=== PATIENT | female | born 1965 ===

== ENCOUNTER 2017-01-22 09:35 | Day surgery (SDC) | payer SELFPAY ==
[2017-01-22] MEDS ORDERED: Lactated Ringer's 1,000 ML IV ONE (10:50)
[2017-01-22] MEDS ORDERED: Propofol 10 mg/ml Inj (20 ML) ONE (12:16)
[2017-01-22] MEDS ORDERED: Lidocaine 2% MPF (5 ml) Inj ONE (12:17)
[2017-01-22 13:04] VITALS: BP 107/59; PULSE 69; RESP 14; TEMP 97.5; O2SAT 100
== END 2017-01-22 13:05 | disposition home or self-care (01) ==
LOC: H.ENDO 09:35
PROVIDERS: ATTEND Internal Medicine Gastroenterology
DX: Z12.11 Encounter for screening for malignant neoplasm of colon (principal); K64.8 Other hemorrhoids
CPT/HCPCS: 45378; J2704; J7120

== ENCOUNTER 2017-04-25 23:31 | Emergency (ER) | payer SELFPAY ==
[2017-04-26] MEDS ORDERED: Sodium Chloride 0.9% 1,000 ML IV STA ×2 (00:07→00:08)
[2017-04-26] MEDS ORDERED: Lactated Ringer's 1,000 ML IV SCH (00:30)
[2017-04-26 00:36] LABS: BASO % 0.5 % (0.0-2.0); EOS % 0.8 % (0.0-4.0); HEMOGLOBIN 11.7 g/dL (12.0-16.0); LYMPH # 1.1 K/uL (1.0-4.3); LYMPH % 22.5 % (20.0-40.0); MEAN CELL VOLUME 87.2 fl (81.0-99.0); MEAN CORPUSCULAR HEMOGLOBIN 29.1 pg (27.0-31.0); MEAN CORPUSCULAR HGB CONC 33.4 g/dL (33.0-37.0); MEAN PLATELET VOLUME 8.4 fl (7.2-11.7); MONO # 0.4 K/uL (0.0-0.8); MONO % 8.6 % (0.0-10.0); NEUT # 3.3 K/uL (1.8-7.0); NEUT % 67.6 % (50.0-75.0); NRBC % 0.1 % (0.0-0.0); RBC 4.02 Mil/uL (3.80-5.20); RED CELL DISTRIBUTION WIDTH 13.2 % (11.5-14.5)
[2017-04-26 00:58] LABS: URINE BILIRUBIN NEGATIVE (NEGATIVE); URINE BLOOD NEGATIVE (NEGATIVE); URINE CLARITY CLOUDY (Clear); URINE COLOR YELLOW (YELLOW); URINE GLUCOSE (UA) NEG (Normal); URINE LEUKOCYTE ESTERASE NEG Leu/uL (Negative); URINE NITRATE NEGATIVE (NEGATIVE); URINE PROTEIN NEGATIVE (NEGATIVE); URINE UROBILINOGEN 0.2-1.0 mg/dL (0.2-1.0)
[2017-04-26 01:02] LABS: BLOOD UREA NITROGEN 12 mg/dl (7-17); CALCIUM 8.7 mg/dL (8.4-10.2); GFR AFRICAN-AMERICAN > 60; GFR NON-AFRICAN AMERICAN > 60
--- NOTE | 2017-04-26 01:28 | ED PDOC ---
HPI: General Adult Time Seen by Provider: 04/26/17 00:01 Chief Complaint (Nursing): Flu-like Symptoms Chief Complaint (Provider): Flu Like Symptoms History Per: Patient Onset/Duration Of Symptoms: Days (2) Current Symptoms Are (Timing): Still Present Severity: Moderate Additional History Per: Patient Additional Complaint(s): 51 y/o female complaining of two days of body aches, headache, malaise , hills, weakness, poor appetite, and nausea. She denies any vomiting, diarrhea , or cough. Patient recently returned from [facility] and reports that she did take Amoxicillin that she had on hand. Denies any other complaint at this time. Past Medical History Vital Signs: Last Vital Signs Temp 98.7 F 04/26/17 03:48 Pulse 65 04/26/17 03:48 Resp 16 04/26/17 03:48 BP 100/70 04/26/17 03:48 Pulse Ox 100 04/26/17 03:48 - Medical History PMH: Asthma - Surgical History Surgical History: No Surg Hx - Family History Family History: States: Unknown Family Hx - Social History Current smoker - smoking cessation education provided: No Ex-Smoker (has not smoked in the last 12 months): No Alcohol: None Drugs: Denies - Home Medications Home Medications: Ambulatory Orders Medication Instructions Recorded Oseltamivir [Tamiflu] 75 mg PO BID #10 cap 04/26/17 - Allergies Allergies/Adverse Reactions: Allergies Allergy/AdvReac Type Severity Reaction Status Date / Time No Known Allergies Allergy Verified 04/25/17 23:48 Review of Systems ROS Statement: Except As Marked, All Systems Reviewed And Found Negative Constitutional: Positive for: Fever, Chills, Weakness, Malaise Gastrointestinal: Positive for: Nausea Musculoskeletal: Positive for: Other (general body aches) Neurological: Positive for: Weakness Physical Exam - Reviewed Nursing Documentation Reviewed: Yes Vital Signs Reviewed: Yes - Physical Exam Appears: Positive for: Well, Non-toxic, Uncomfortable Head Exam: Positive for: ATRAUMATIC, NORMAL INSPECTION, NORMOCEPHALIC Skin: Positive for: Normal Color, Warm, DRY Eye Exam: Positive for: EOMI, Normal appearance, PERRL ENT: Positive for: Normal ENT Inspection Neck: Positive for: Normal, Painless ROM Cardiovascular/Chest: Positive for: Tachycardia. Negative for: Gallop, Irregularly Irregular Respiratory: Positive for: CNT, Normal Breath Sounds Gastrointestinal/Abdominal: Positive for: Normal Exam, Bowel Sounds, Soft Back: Positive for: Normal Inspection Extremity: Positive for: Normal ROM Neurologic/Psych: Positive for: Alert, Oriented - Laboratory Results Result Diagrams: 04/26/17 00:25 04/26/17 00:25 - ECG O2 Sat by Pulse Oximetry: 98 (RA) Pulse Ox Interpretation: Normal Medical Decision Making Medical Decision Making: Impression: 51 y/o female with flu like symptoms. Plan: - Tylenol for fever - Toradol for pain - IVF - Flu swab Flu swab is positive. Patient given Tamiflu. Labs otherwise negative for clinically significant findings. Patient is medically stable for discharge, and reports that her pain is improved. She is afebrile at the time of discharge. Instructed patient to follow up with her PMD. All questions answered. Scribe Attestation Documented by Bee Heath acting as a scribe for Jaime Kelley MD. Provider Attestation All medical record entries made by the Scribe were at my direction and personally dictated by me. I have reviewed the chart and agree that the record accurately reflects my personal performance of the history, physical exam, medical decision making, and the department course for this patient. I have also personally directed, reviewed, and agree with the discharge instructions and disposition. Disposition - Clinical Impression Clinical Impression: Influenza - Patient ED Disposition Is Patient to be Admitted: No Doctor Will See Patient In The: Office Counseled Patient/Family Regarding: Studies Performed, Diagnosis, Need For Followup, Rx Given - Disposition Disposition: Routine/Home Disposition Time: 03:30 Condition: STABLE Prescriptions: Oseltamivir [Tamiflu] 75 mg PO BID #10 cap Instructions: Flu, Adult (DC) Forms: [employer] (Brazilian) Print Language: SAMI
[2017-04-26 03:49] VITALS: BP 100/70; PULSE 65; RESP 16; TEMP 98.7
[2017-04-29 23:20] VITALS: O2SAT 98
== END 2017-04-26 03:50 | disposition home or self-care (01) ==
LOC: H.ER 23:31
DX: J11.1 Influenza due to unidentified influenza virus with other respiratory manifestations (principal); J45.909 Unspecified asthma, uncomplicated; Z87.891 Personal history of nicotine dependence
CPT/HCPCS: 80048; 81003; 85025; 87804; 99282; J1885; J2405; J7120

== ENCOUNTER 2017-08-01 07:53 | Emergency (ER) | payer OTHER, SELFPAY ==
[2017-08-01 08:08] VITALS: TEMP 98.2
[2017-08-01 08:09] VITALS: BMI 29.2
[2017-08-01] MEDS ORDERED: Albuterol-Ipratrop 3 mg / 0.5 (3 ml) UD IH STA ×2 (08:52→10:26)
[2017-08-01] MEDS ORDERED: Albuterol-Ipratrop 3 mg / 0.5 (3 ml) UD ONE ×2 (08:59→10:38)
--- NOTE | 2017-08-01 09:19 | ED PDOC ---
HPI: Allergic Reaction Time Seen by Provider: 08/01/17 08:44 Chief Complaint (Nursing): Cough, Cold, Congestion Chief Complaint (Provider): Cough, Cold, Congestion History Per: Patient History/Exam Limitations: no limitations Onset/Duration Of Symptoms: Days (1 month), Intermittent Episodes Current Symptoms Are (Timing): Still Present Associated Symptoms: denies: Chest Pain Home/EMS Treatment: Other (Albuterol inhaler) Additional Complaint(s): 52 y/o female with a history of allergic bronchospasm presents to the ED for a cough. Patient states this has been going on for about 1 month. She states her cough produces a white sputum associated with SOB and wheezing intermittently. She was seen by an supervisor securities [employer] and was given an Albuterol inhaler which gave her temporary relief. Patient denies any fever or chest pain. PMD: Dr. Lucio Flores Past Medical History Reviewed: Historical Data, Nursing Documentation, Vital Signs Vital Signs: Last Vital Signs Temp 98.2 F 08/01/17 08:06 Pulse 89 08/01/17 08:06 Resp 16 08/01/17 08:06 BP 125/67 08/01/17 08:06 Pulse Ox 96 08/01/17 08:06 - Medical History PMH: Asthma - Surgical History Surgical History: No Surg Hx - Family History Family History: States: Unknown Family Hx - Social History Current smoker - smoking cessation education provided: No Ex-Smoker (has not smoked in the last 12 months): No Alcohol: None Drugs: Denies - Home Medications Home Medications: Ambulatory Orders Medication Instructions Recorded Oseltamivir [Tamiflu] 75 mg PO BID #10 cap 04/26/17 Albuterol 0.042% [Albuterol 0.042% 3 ml IH Q8 #1 lana 08/01/17 Inhal Lana (1.25mg/3ml) UD] Azithromycin [Zithromax] 250 mg PO DAILY #6 tab 08/01/17 Non-Formulary 1 ea .ROUTE Q6 #1 ea 08/01/17 Prednisone 50 mg PO DAILY #5 tab 08/01/17 - Allergies Allergies/Adverse Reactions: Allergies Allergy/AdvReac Type Severity Reaction Status Date / Time No Known Allergies Allergy Verified 08/01/17 08:19 Review of Systems ROS Statement: Except As Marked, All Systems Reviewed And Found Negative Constitutional: Negative for: Fever Cardiovascular: Negative for: Chest Pain Respiratory: Positive for: Cough, Shortness of Breath, Sputum (white in color), Wheezing (intermittently) Physical Exam - Reviewed Nursing Documentation Reviewed: Yes Vital Signs Reviewed: Yes - Physical Exam Appears: Positive for: Non-toxic, No Acute Distress Head Exam: Positive for: ATRAUMATIC, NORMAL INSPECTION, NORMOCEPHALIC Skin: Positive for: Normal Color, Warm, Dry Eye Exam: Positive for: EOMI, Normal appearance, PERRL ENT: Positive for: Normal ENT Inspection, Pharynx Is (clear) Cardiovascular/Chest: Positive for: Regular Rate, Rhythm. Negative for: Murmur Respiratory: Positive for: Rhonchi (scattered bilaterally), Wheezing (expiratory ). Negative for: Respiratory Distress Gastrointestinal/Abdominal: Positive for: Normal Exam, Soft. Negative for: Tenderness Extremity: Positive for: Normal ROM. Negative for: Pedal Edema, Deformity Neurologic/Psych: Positive for: Alert, Oriented (x3) - ECG O2 Sat by Pulse Oximetry: 96 (RA) Pulse Ox Interpretation: Normal - Progress Re-evaluation Time: 11:36 Condition: Improved Disposition - Clinical Impression Clinical Impression: Allergic bronchitis - Patient ED Disposition Is Patient to be Admitted: No Counseled Patient/Family Regarding: Studies Performed, Diagnosis, Need For Followup, Rx Given - Disposition Referrals: [facility] [Outside] Disposition: Routine/Home Disposition Time: 11:36 Condition: FAIR Prescriptions: Albuterol 0.042% [Albuterol 0.042% Inhal Lana (1.25mg/3ml) UD] 3 ml IH Q8 #1 lana Azithromycin [Zithromax] 250 mg PO DAILY #6 tab Non-Formulary 1 ea .ROUTE Q6 #1 ea Prednisone 50 mg PO DAILY #5 tab Instructions: Acute Bronchitis, Asthma in Adults Forms: [employer] (Belarusian) Print Language: [place]IZ[place] Medical Decision Making Medical Decision Making: Time: 08:06 Impression: to be completed later per provider Initial Plan: * Albuterol 3 ml IH * Prednisone 50 mg PO Scribe Attestation: Documented by Janak Taylor acting as a scribe for Tiffanie Baxter MD. Scribcharity Attestation: All medical record entries made by the Scribe were at my direction and personally dictated by me. I have reviewed the chart and agree that the record accurately reflects my personal performance of the history, physical exam, medical decision making, and the department course for this patient. I have also personally directed, reviewed, and agree with the discharge instructions and disposition.
[2017-08-01 12:17] VITALS: BP 130/66; PULSE 75; RESP 17; O2SAT 98
== END 2017-08-01 12:16 | disposition home or self-care (01) ==
LOC: H.ER 07:53
DX: J45.909 Unspecified asthma, uncomplicated (principal); Z87.891 Personal history of nicotine dependence; T78.40XA Allergy, unspecified, initial encounter

== ENCOUNTER 2018-06-02 19:22 | Emergency (ER) | payer OTHER ==
[2018-06-02 19:22] VITALS: BMI 29.2
[2018-06-02] MEDS ORDERED: Iohexol 240 (50 ml) PO ONE (20:17)
[2018-06-02] MEDS ORDERED: Sodium Chloride 0.9% 1,000 ML IV STA (20:17)
--- NOTE | 2018-06-02 20:23 | ED PDOC ---
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 Associated watery diarrhea every 20-30 minutes, nausea. Denies fever, chest pain, shortness of breath, palpitations, urinary symptoms, recent travel. Past Medical History Reviewed: Historical Data, Nursing Documentation, Vital Signs Vital Signs: Last Vital Signs Temp 99.4 F 06/02/18 19:50 Pulse 104 H 06/02/18 19:50 Resp 16 06/02/18 19:50 BP 115/82 06/02/18 19:50 Pulse Ox 97 06/02/18 19:50 - Medical History PMH: Asthma - Family History Family History: States: Unknown Family Hx - Home Medications Home Medications: Ambulatory Orders Medication Instructions Recorded Oseltamivir Cap [Tamiflu] 75 mg PO BID #10 cap 04/26/17 Albuterol 0.042% [Albuterol 0.042% 3 ml IH Q8 #1 kirby 08/01/17 Inhal Kirby (1.25mg/3ml) UD] Azithromycin [Zithromax] 250 mg PO DAILY #6 tab 08/01/17 Non-Formulary 1 ea .ROUTE Q6 #1 ea 08/01/17 Prednisone 50 mg PO DAILY #5 tab 08/01/17 Dicyclomine [Bentyl] 20 mg PO TID PRN #15 tab 06/03/18 - Allergies Allergies/Adverse Reactions: Allergies Allergy/AdvReac Type Severity Reaction Status Date / Time No Known Allergies Allergy Verified 06/02/18 19:50 Review of Systems ROS Statement: Except As Marked, All Systems Reviewed And Found Negative Gastrointestinal: Positive for: Nausea, Abdominal Pain, Diarrhea Physical Exam - Reviewed Nursing Documentation Reviewed: Yes Vital Signs Reviewed: Yes - Physical Exam Appears: Positive for: Well, Non-toxic, No Acute Distress Head Exam: Positive for: ATRAUMATIC, NORMAL INSPECTION, NORMOCEPHALIC Skin: Positive for: Normal Color Eye Exam: Positive for: Normal appearance ENT: Positive for: Normal ENT Inspection Cardiovascular/Chest: Positive for: Regular Rate, Rhythm Respiratory: Positive for: Normal Breath Sounds Gastrointestinal/Abdominal: Positive for: Bowel Sounds, Soft, Tenderness (diffuse) Back: Positive for: Normal Inspection Extremity: Positive for: Normal ROM Neurological/Psych: Positive for: Awake, Alert, Oriented (x3) - Laboratory Results Result Diagrams: 06/02/18 20:41 06/02/18 20:41 - ECG O2 Sat by Pulse Oximetry: 97 - Progress ED Course And Treament: -cbc -cmp -lipase -CT abd/pelvis -IV NS bolus -IV zofran -PO bentyl EXAM: CT Abdomen and Pelvis with IV contrast CLINICAL HISTORY: Abdominal pain diarrhea TECHNIQUE: Axial computed tomography images of the abdomen and pelvis with intravenous contrast. 392.99 mGy-cm CONTRAST: With; [id number] 90ML COMPARISON: None provided. FINDINGS: LUNG BASES: Minimal linear atelectasis near the lung bases. LIVER: Unremarkable. GALLBLADDER AND BILE DUCTS: Gallbladder is decompressed. PANCREAS: Unremarkable. SPLEEN: Unremarkable. ADRENAL GLANDS: Unremarkable. KIDNEYS, URETERS, AND BLADDER: Bladder is decompressed. STOMACH AND BOWEL: No bowel obstruction or bowel inflammation is evident. APPENDIX: Normal appendix in the right lower quadrant. PERITONEUM: No free fluid. No free air. LYMPH NODES: No lymphadenopathy is evident. REPRODUCTIVE: Unremarkable as visualized. VASCULATURE: No evidence of abdominal aortic aneurysm. BONES: Minimal multilevel degenerative spine changes. IMPRESSION: 1. No acute pathology identified in the abdomen or pelvis. 2. Additional and incidental findings as described above Patient educated on findings, discharged with rx Bentyl Advised increase fluid intake, BRAT diet Follow up PMD within 2-3 days Return precautions given Disposition - Clinical Impression Clinical Impression: Gastroenteritis - Patient ED Disposition Is Patient to be Admitted: No Counseled Patient/Family Regarding: Studies Performed, Diagnosis, Need For Followup, Rx Given - Disposition Disposition: Routine/Home Disposition Time: 00:27 Condition: IMPROVED Prescriptions: Dicyclomine [Bentyl] 20 mg PO TID PRN #15 tab PRN Reason: Pain, Mild (1-3) Instructions: Gastroenteritis (ED) Print Language: GREENLANDIC
[2018-06-02 20:47] LABS: BASO % 0.1 % (0.0-2.0); EOS # 0.1 K/uL (0.0-0.7); EOS % 1.8 % (0.0-4.0); HEMOGLOBIN 14.7 g/dL (12.0-16.0); LYMPH # 0.6 K/uL (1.0-4.3); LYMPH % 9.3 % (20.0-40.0); MEAN CORPUSCULAR HEMOGLOBIN 29.1 pg (27.0-31.0); MEAN CORPUSCULAR HGB CONC 33.1 g/dL (33.0-37.0); MEAN PLATELET VOLUME 8.6 fl (7.2-11.7); MONO # 0.4 K/uL (0.0-0.8); MONO % 5.4 % (0.0-10.0); NEUT # 5.6 K/uL (1.8-7.0); NEUT % 83.4 % (50.0-75.0); PLATELET COUNT 295 K/uL (130-400); RBC 5.05 Mil/uL (3.80-5.20); RED CELL DISTRIBUTION WIDTH 13.2 % (11.5-14.5); WHITE BLOOD COUNT 6.7 K/uL (4.8-10.8)
[2018-06-02 20:54] LABS: ALB/GLOB RATIO 1.2 (1.0-2.1); ALBUMIN 4.9 g/dL (3.5-5.0); ALT/SGPT 32 U/L (9-52); AST/SGOT 26 U/L (14-36); BLOOD UREA NITROGEN 23 mg/dl (7-17); CALCIUM 9.8 mg/dL (8.4-10.2); GFR NON-AFRICAN AMERICAN 52; LIPASE 39 U/L (23-300)
[2018-06-02 22:23] LABS: BANDS 2 % (0-2); EOSINOPHIL 3 % (0-7); LYMPHOCYTE 13 % (20-50); MONOCYTE 5 % (0-10); NEUTROPHIL 77 % (42-75); PLATELET ESTIMATE NORMAL (NORMAL); TOTAL CELLS COUNTED 100
[2018-06-02] MEDS ORDERED: Sodium Chloride 0.9% 50 ML IV ONE (22:59)
[2018-06-02] MEDS ORDERED: Iohexol 300 100 ML IJ ONE (22:59)
[2018-06-03 01:04] VITALS: BP 107/67; PULSE 71; RESP 18; TEMP 98.7; O2SAT 96
--- NOTE | 2018-06-03 14:19 | CT ---
Date of service: 06/02/2018 PROCEDURE: CT Abdomen and Pelvis with contrast HISTORY: abd pain, diarrhea COMPARISON: None. TECHNIQUE: Contrast dose: Radiation dose: Total exam DLP = 392.99 mGy-cm. This CT exam was performed using one or more of the following dose reduction techniques: Automated exposure control, adjustment of the mA and/or kV according to patient size, and/or use of iterative reconstruction technique. FINDINGS: LOWER THORAX: Unremarkable. LIVER: Unremarkable. No gross lesion or ductal dilatation. GALLBLADDER AND BILE DUCTS: Unremarkable. PANCREAS: Unremarkable. No gross lesion or ductal dilatation. SPLEEN: Unremarkable. ADRENALS: Unremarkable. No mass. KIDNEYS AND URETERS: Unremarkable. No hydronephrosis. No solid mass. VASCULATURE: Unremarkable. No aortic aneurysm. No aortic atherosclerotic calcification or mural plaque present. BOWEL: Unremarkable. No obstruction. No gross mural thickening. APPENDIX: Normal appendix. PERITONEUM: Unremarkable. No free fluid. No free air. LYMPH NODES: Unremarkable. No enlarged lymph nodes. BLADDER: Unremarkable. REPRODUCTIVE: Unremarkable. BONES: No acute fracture. OTHER FINDINGS: None. IMPRESSION: Unremarkable contrast enhanced CT of the abdomen and pelvis.
== END 2018-06-03 01:04 | disposition home or self-care (01) ==
LOC: H.ER 19:22
DX: K52.9 Noninfective gastroenteritis and colitis, unspecified (principal); J45.909 Unspecified asthma, uncomplicated; Z79.899 Other long term (current) drug therapy
CPT/HCPCS: 74177; 80053; 83690; 85025; 96360; 99283; J2405; J7030; Q9966; Q9967